=== PATIENT | female | born 1985 | race Caucasian/White ===

== ENCOUNTER → 2017-09-01 | Outpatient (CLI) | payer OTHER ==
[~2017-09-01] MED LIST: Ceftriaxone2 G1 IV; HYDCHL50; IBUP400 PO; IBUP600 PO; MECL25 PO; Percocet 5-3251 EACH PO; TRAM50 PO; Zofran8 MG PO; [UNRECOGNIZED DRUG - REMARK]
== END ==
LOC: LAB 15:17
DX: Z34.00 Encounter for supervision of normal first pregnancy, unspecified trimester (principal)
CPT/HCPCS: 87081; 87653

== ENCOUNTER → 2017-09-06 | Outpatient (CLI) | payer OTHER ==
[2017-09-06 13:56] LABS: Protein, Urine Quantitative 42.7 mg/dL (0.0-11.9)
== END | disposition home or self-care (01) ==
LOC: LAB 13:03
PROVIDERS: Obstetrics & Gynecology
DX: R03.0 Elevated blood-pressure reading, without diagnosis of hypertension (principal)
CPT/HCPCS: 81050; 84156

== ENCOUNTER 2018-04-30 14:39 | Emergency (ER) | payer OTHER ==
[~2018-04-30] VITALS: Ht 154.9 cm; Wt 79.4 kg
[~2018-04-30 14:39] MED LIST changes: -Ceftriaxone2 G1 IV; -IBUP400 PO; -Percocet 5-3251 EACH PO; -TRAM50 PO; -Zofran8 MG PO
[2018-04-30 15:30] LABS: Calcium, Ionized (POC) 1.09 mmol/L (1.10-1.46); Chloride (POC) 101 mmol/L (98-108); Creatinine (POC) 0.6 mg/dL (0.6-1.0); Glucose (ISTAT POC) 91 mg/dL (70-99); Hemoglobin (POC) 15.3 g/dL (12.0-16.0); Potassium (POC) 3.9 mmol/L (3.5-5.5); Sodium (POC) 139 mmol/L (135-148); Total CO2 (POC) 26 mmol/L (21-32)
[2018-04-30 15:37] LABS: BASOPHILS ABSOLUTE AUTO 0.05 K/mm3 (0.00-0.23); BASOPHILS PERCENT AUTO 0 % (0-2); EOSINOPHILS ABSOLUTE AUTO 0.15 K/mm3 (0.00-0.68); EOSINOPHILS PERCENT AUTO 1 % (0-6); Hematocrit 43.9 % (33.0-51.0); Hemoglobin 14.1 g/dL (11.5-16.0); IMMATURE GRAN ABSOLUTE AUTO 0.08 K/mm3 (0.00-0.10); IMMATURE GRAN PERCENT AUTO 1 % (0-1); LYMPHOCYTES ABSOLUTE AUTO 2.99 K/mm3 (0.84-5.20); LYMPHOCYTES PERCENT AUTO 19 % (21-46); MONOCYTES ABSOLUTE AUTO 0.71 K/mm3 (0.16-1.47); MONOCYTES PERCENT AUTO 5 % (4-13); Mean Corpuscular HGB 29.9 pg (26.0-34.0); Mean Corpuscular HGB Conc 32.1 g/dL (31.5-36.5); Mean Corpuscular Volume 93 fL (80-100); Mean Platelet Volume 9.8 fL (9.1-12.4); NEUTROPHILS ABSOLUTE AUTO 11.73 K/mm3 (1.96-9.15); NEUTROPHILS PERCENT AUTO 75 % (41-73); Platelet Count 289 K/mm3 (150-400); RDW Coefficient Variation 12.9 % (11.7-14.2); RDW Standard Deviation 44.2 fL (35.1-46.3); Red Blood Cell Count 4.72 M/mm3 (3.80-5.20); White Blood Cell Count 15.71 K/mm3 (4.00-11.30)
[2018-04-30] MEDS ORDERED: IBUP400 PO (17:20)
[2018-04-30] MEDS ORDERED: Percocet 5-3251 EACH PO (17:20)
[2018-04-30] MEDS ORDERED: Zofran8 MG PO (17:20)
== END 2018-04-30 18:08 | disposition home or self-care (01) ==
LOC: ER 14:39
PROVIDERS: Emergency Medicine
DX: H92.02 Otalgia, left ear (principal); Z88.8 Allergy status to other drugs, medicaments and biological substances
CPT/HCPCS: 36415; 70480; 80047; 85014; 85025; J1170; J1885; J2405; J7120

== ENCOUNTER 2018-07-26 00:11 | Day surgery (SDC) | payer OTHER ==
[~2018-07-26 00:11] MED LIST changes: +Ceftriaxone2 G1 IV; +IBUP400 PO; +Percocet 5-3251 EACH PO; +TRAM50 PO; +Zofran8 MG PO
== END 2018-07-26 17:01 | disposition home or self-care (01) ==
LOC: ATC 00:11
DX: G00.0 Hemophilus meningitis (principal)
CPT/HCPCS: 96365; J0696

== ENCOUNTER 2018-07-27 00:07 | Day surgery (SDC) | payer OTHER | END 2018-07-27 17:10 | disposition home or self-care (01) | LOC: ATC 00:07 | DX: G00.0 Hemophilus meningitis (principal) | CPT/HCPCS: 96365; J0696 ==

== ENCOUNTER 2018-07-28 01:24 | Day surgery (SDC) | payer OTHER | END 2018-07-28 07:57 | disposition home or self-care (01) | LOC: ATC 01:24 | DX: G00.0 Hemophilus meningitis (principal) | CPT/HCPCS: J0696 ==

== ENCOUNTER 2018-07-28 17:09 | Emergency (ER) | payer OTHER ==
[~2018-07-28] VITALS: Ht 154.9 cm; Wt 83.9 kg
== END 2018-07-28 18:58 | disposition home or self-care (01) ==
LOC: ER 17:09
DX: Z76.0 Encounter for issue of repeat prescription (principal); Z88.8 Allergy status to other drugs, medicaments and biological substances; Z79.899 Other long term (current) drug therapy
CPT/HCPCS: 96365; 99281-25; J0696

== ENCOUNTER 2018-07-29 07:54 | Day surgery (SDC) | payer OTHER | END 2018-07-29 17:00 | disposition home or self-care (01) | LOC: ATC 07:54 | DX: G93.40 Encephalopathy, unspecified (principal); N18.3 Chronic kidney disease, stage 3 (moderate); G50.0 Trigeminal neuralgia | CPT/HCPCS: 96365; J0696 ==

== ENCOUNTER 2018-07-30 07:59 | Day surgery (SDC) | payer OTHER | END 2018-07-30 16:45 | disposition home or self-care (01) | LOC: ATC 07:59 | DX: G00.0 Hemophilus meningitis (principal) | CPT/HCPCS: 96365; J0696 ==

== ENCOUNTER 2018-07-31 00:03 | Day surgery (SDC) | payer OTHER ==
[2018-07-31 08:17] LABS: BASOPHILS ABSOLUTE AUTO 0.02 K/mm3 (0.00-0.23); BASOPHILS PERCENT AUTO 0 % (0-2); EOSINOPHILS ABSOLUTE AUTO 0.16 K/mm3 (0.00-0.68); EOSINOPHILS PERCENT AUTO 2 % (0-6); Hematocrit 41.1 % (33.0-51.0); Hemoglobin 13.1 g/dL (11.5-16.0); IMMATURE GRAN ABSOLUTE AUTO 0.06 K/mm3 (0.00-0.10); IMMATURE GRAN PERCENT AUTO 1 % (0-1); LYMPHOCYTES PERCENT AUTO 26 % (21-46); MONOCYTES ABSOLUTE AUTO 0.48 K/mm3 (0.16-1.47); MONOCYTES PERCENT AUTO 5 % (4-13); Mean Corpuscular HGB 29.4 pg (26.0-34.0); Mean Corpuscular HGB Conc 31.9 g/dL (31.5-36.5); Mean Corpuscular Volume 92 fL (80-100); Mean Platelet Volume 9.3 fL (9.1-12.4); NEUTROPHILS ABSOLUTE AUTO 6.64 K/mm3 (1.96-9.15); NEUTROPHILS PERCENT AUTO 67 % (41-73); Platelet Count 325 K/mm3 (150-400); RDW Coefficient Variation 14.1 % (11.7-14.2); RDW Standard Deviation 47.8 fL (35.1-46.3); Red Blood Cell Count 4.46 M/mm3 (3.80-5.20); White Blood Cell Count 9.96 K/mm3 (4.00-11.30)
[2018-07-31 08:37] LABS: Alanine Aminotransfer (ALT/SGP 24 U/L (12-78); Albumin, Blood 3.2 g/dL (3.4-5.0); Albumin/Globulin Ratio 0.7 (0.8-1.8); Alk Phos 84 U/L (50-136); Anion Gap 7 mmol/L (6-16); Aspartate Aminotrans (AST/SGOT 9 U/L (12-37); Bilirubin, Total 0.3 mg/dL (0.1-1.0); Blood Urea Nitrogen 16 mg/dL (8-24); Bun/Creatinine Ratio 24.9 (12.0-20.0); CO2, Blood 25 mmol/L (21-32); Calcium, Blood 8.8 mg/dL (8.5-10.1); Chloride, Blood 108 mmol/L (98-108); Creatinine, Blood 0.64 mg/dL (0.40-1.00); Globulin, Blood 4.6 g/dL (2.2-4.0); Glomerular Filtration Rate >60 (60-); Glucose, Blood 90 mg/dL (70-99); Potassium, Blood 4.1 mmol/L (3.5-5.5); Sodium, Blood 140 mmol/L (136-145); Total Protein, Blood 7.8 g/dL (6.4-8.2)
== END 2018-07-31 17:11 | disposition home or self-care (01) ==
LOC: ATC 00:03
PROVIDERS: Internal Medicine Infectious Disease
DX: G00.0 Hemophilus meningitis (principal)
CPT/HCPCS: 80053; 85025; 96365; J0696

== ENCOUNTER 2018-08-01 00:05 | Day surgery (SDC) | payer OTHER ==
--- NOTE | 2018-08-01 17:50 | NUR ---
LINDSEY CALDERON RN HER AND PLACED POWER GLIDE IV IN L UPPER ARM.
== END 2018-08-01 17:45 | disposition home or self-care (01) ==
LOC: ATC 00:05
DX: G00.0 Hemophilus meningitis (principal)
CPT/HCPCS: 96365; C1751; C1894; J0696

== ENCOUNTER 2018-08-02 00:15 | Day surgery (SDC) | payer OTHER | END 2018-08-02 16:44 | disposition home or self-care (01) | LOC: ATC 00:15 | DX: G00.0 Hemophilus meningitis (principal) | CPT/HCPCS: 96365; J0696 ==

== ENCOUNTER 2018-08-04 00:17 | Day surgery (SDC) | payer OTHER | END 2018-08-04 16:53 | disposition home or self-care (01) | LOC: ATC 00:17 | DX: G00.0 Hemophilus meningitis (principal) | CPT/HCPCS: 96365; J0696 ==

== ENCOUNTER 2018-08-09 00:06 | Day surgery (SDC) | payer OTHER ==
--- NOTE | 2018-08-09 08:36 | NUR ---
PT DISCHARGED AFTER EXT DWELL DSG CHANGE AT 0817.
== END 2018-08-09 08:17 | disposition home or self-care (01) ==
LOC: ATC 00:06
DX: G00.0 Hemophilus meningitis (principal)
CPT/HCPCS: 96365; 96366; J0696; 99211

== ENCOUNTER 2018-08-17 00:08 | Day surgery (SDC) | payer OTHER | END 2018-08-17 13:58 | disposition home or self-care (01) | LOC: ATC 00:08 | DX: G00.0 Hemophilus meningitis (principal) | CPT/HCPCS: 99212; C1751 ==

== ENCOUNTER 2018-09-16 13:04 | Emergency (ER) | payer OTHER ==
[~2018-09-16] VITALS: Ht 154.9 cm; Wt 81.7 kg
[2018-09-16 14:38] LABS: Source, Urine Clean Catch
[2018-09-16 14:40] LABS: Appearance, Urine Hazy (Clear); Bilirubin, Urine Neg (Neg); Blood, Urine 2+ (Neg); Color, Urine Yellow (P-Yellow); Glucose Qualitative, Urine Neg (Neg); Ketones, Urine Neg (Neg); Leukocyte Esterase, Urine 1+ (Neg); Nitrite, Urine Neg (Neg); Protein, Urine 2+ (Neg); Urobilinogen, Urine NORM (Normal)
[2018-09-16 14:44] LABS: BASOPHILS ABSOLUTE AUTO 0.03 K/mm3 (0.00-0.23); BASOPHILS PERCENT AUTO 0 % (0-2); EOSINOPHILS ABSOLUTE AUTO 0.04 K/mm3 (0.00-0.68); EOSINOPHILS PERCENT AUTO 0 % (0-6); Hemoglobin 13.1 g/dL (11.5-16.0); IMMATURE GRAN ABSOLUTE AUTO 0.08 K/mm3 (0.00-0.10); IMMATURE GRAN PERCENT AUTO 0 % (0-1); LYMPHOCYTES PERCENT AUTO 7 % (21-46); MONOCYTES PERCENT AUTO 5 % (4-13); Mean Corpuscular HGB 29.4 pg (26.0-34.0); Mean Corpuscular Volume 92 fL (80-100); Mean Platelet Volume 9.9 fL (9.1-12.4); NEUTROPHILS ABSOLUTE AUTO 18.25 K/mm3 (1.96-9.15); NEUTROPHILS PERCENT AUTO 87 % (41-73); Platelet Count 237 K/mm3 (150-400); RDW Coefficient Variation 13.6 % (11.7-14.2); RDW Standard Deviation 46.1 fL (35.1-46.3); Red Blood Cell Count 4.46 M/mm3 (3.80-5.20)
[2018-09-16 15:09] LABS: Alanine Aminotransfer (ALT/SGP 17 U/L (12-78); Albumin, Blood 3.4 g/dL (3.4-5.0); Albumin/Globulin Ratio 0.8 (0.8-1.8); Alk Phos 90 U/L (50-136); Anion Gap 6 mmol/L (6-16); Aspartate Aminotrans (AST/SGOT 13 U/L (12-37); Bilirubin, Total 0.9 mg/dL (0.1-1.0); Blood Urea Nitrogen 9 mg/dL (8-24); Bun/Creatinine Ratio 13.4 (12.0-20.0); CO2, Blood 25 mmol/L (21-32); Calcium, Blood 9.2 mg/dL (8.5-10.1); Chloride, Blood 104 mmol/L (98-108); Creatinine, Blood 0.67 mg/dL (0.40-1.00); Globulin, Blood 4.2 g/dL (2.2-4.0); Glomerular Filtration Rate >60 (60-); Glucose, Blood 91 mg/dL (70-99); Potassium, Blood 4.1 mmol/L (3.5-5.5); Sodium, Blood 135 mmol/L (136-145); Total Protein, Blood 7.6 g/dL (6.4-8.2)
[2018-09-16] MEDS ORDERED: OXYC5 (15:09)
[2018-09-16 15:14] LABS: Bacteria Many /hpf; Squamous Epithelial Cells Many /hpf (Few)
[2018-09-16 17:10] LABS: Glucose, CSF 58 mg/dL (40-70)
[2018-09-16 17:14] LABS: Color, CSF No Color (No Color); RBC Count, CSF 16 /mm3 (0-0); WBC Count, CSF 1 /mm3 (0-5)
[2018-09-16 17:15] LABS: Appearance, CSF Clear (Clear)
== END 2018-09-16 18:43 | disposition home or self-care (01) ==
LOC: ER 13:04
PROVIDERS: Emergency Medicine; Physician Assistant
DX: R51 Headache (principal); Z88.8 Allergy status to other drugs, medicaments and biological substances; Z79.891 Long term (current) use of opiate analgesic
CPT/HCPCS: 36415; 62270; 80053; 81001; 82945; 84157; 85025; 87081; 87086; 87430; 89051; 93005; 93010; J1170; J2405; J7030; J7120

== ENCOUNTER → 2020-01-09 | Outpatient (CLI) | payer BC, OTHER ==
[~2020-01-09] MED LIST changes: +OXYC5
[2020-01-09 16:28] LABS: Protein, Urine Quantitative 8.8 mg/dL (0.0-11.9)
== END | disposition home or self-care (01) ==
LOC: LAB 07:15 → LAB SHORT 07:15
PROVIDERS: Obstetrics & Gynecology
DX: Z01.419 Encounter for gynecological examination (general) (routine) without abnormal findings (principal); Z87.59 Personal history of other complications of pregnancy, childbirth and the puerperium
CPT/HCPCS: 81050; 84156

== ENCOUNTER → 2020-04-09 | Outpatient (CLI) | payer BC ==
[2020-04-09 15:07] LABS: BASOPHILS ABSOLUTE AUTO 0.03 K/mm3 (0.00-0.23); BASOPHILS PERCENT AUTO 0 % (0-2); EOSINOPHILS ABSOLUTE AUTO 0.07 K/mm3 (0.00-0.68); EOSINOPHILS PERCENT AUTO 1 % (0-6); Hematocrit 37.9 % (33.0-51.0); IMMATURE GRAN PERCENT AUTO 1 % (0-1); LYMPHOCYTES ABSOLUTE AUTO 1.57 K/mm3 (0.84-5.20); LYMPHOCYTES PERCENT AUTO 12 % (21-46); MONOCYTES PERCENT AUTO 3 % (4-13); Mean Corpuscular HGB 31.4 pg (26.0-34.0); Mean Corpuscular HGB Conc 31.7 g/dL (31.5-36.5); Mean Corpuscular Volume 99 fL (80-100); Mean Platelet Volume 10.9 fL (9.1-12.4); NEUTROPHILS ABSOLUTE AUTO 11.52 K/mm3 (1.96-9.15); NEUTROPHILS PERCENT AUTO 84 % (41-73); Platelet Count 197 K/mm3 (150-400); RDW Coefficient Variation 14.2 % (11.7-14.2); RDW Standard Deviation 51.5 fL (35.1-46.3); Red Blood Cell Count 3.82 M/mm3 (3.80-5.20); White Blood Cell Count 13.69 K/mm3 (4.00-11.30)
== END | disposition home or self-care (01) ==
LOC: LAB 13:18 → LAB SHORT 13:18
PROVIDERS: Obstetrics & Gynecology
DX: Z34.82 Encounter for supervision of other normal pregnancy, second trimester (principal)
CPT/HCPCS: 85025

== ENCOUNTER → 2020-06-10 | Outpatient (CLI) | payer BC, OTHER | END | disposition home or self-care (01) | LOC: PLD 10:45 → LAB SHORT 10:45 | DX: O09.213 Supervision of pregnancy with history of pre-term labor, third trimester (principal) | CPT/HCPCS: 87081; 87150 ==

== ENCOUNTER → 2023-06-28 | Outpatient (CLI) | payer BC ==
[2023-07-08 09:30] LABS: HPV GENOTYPE 16 Not Detected; HPV GENOTYPE 18 Not Detected; HPV HIGH RISK Not Detected; HPV SOURCE Cervical
== END | disposition home or self-care (01) ==
LOC: LAB SHORT 17:01 → LAB 17:01
PROVIDERS: Obstetrics & Gynecology
DX: Z01.419 Encounter for gynecological examination (general) (routine) without abnormal findings (principal)
CPT/HCPCS: 87624; G0123

== ENCOUNTER → 2023-09-02 | Outpatient (CLI) | payer BC ==
[2023-09-02 19:43] LABS: Bacteria Few /hpf; Red Blood Cells, Urine 0-2 /hpf (0-2); Squamous Epithelial Cells Few /hpf (Few); White Blood Cells, Urine 0-2 /hpf (0-5)
== END ==
LOC: LAB SHORT 14:37 → LAB 14:37
PROVIDERS: Obstetrics & Gynecology
DX: O09.90 Supervision of high risk pregnancy, unspecified, unspecified trimester (principal); Z3A.00 Weeks of gestation of pregnancy not specified
CPT/HCPCS: 81015; 87086

== ENCOUNTER → 2023-09-22 | Outpatient (CLI) | payer BC ==
[2023-09-22 10:41] LABS: BASOPHILS ABSOLUTE AUTO 0.01 K/mm3 (0.00-0.23); BASOPHILS PERCENT AUTO 0 % (0-2); EOSINOPHILS ABSOLUTE AUTO 0.01 K/mm3 (0.00-0.68); EOSINOPHILS PERCENT AUTO 0 % (0-6); Hematocrit 40.9 % (33.0-51.0); Hemoglobin 13.7 g/dL (11.5-16.0); IMMATURE GRAN ABSOLUTE AUTO 0.02 K/mm3 (0.00-0.10); IMMATURE GRAN PERCENT AUTO 0 % (0-1); LYMPHOCYTES PERCENT AUTO 6 % (21-46); MONOCYTES ABSOLUTE AUTO 0.49 K/mm3 (0.16-1.47); MONOCYTES PERCENT AUTO 7 % (4-13); Mean Corpuscular HGB 30.3 pg (26.0-34.0); Mean Corpuscular HGB Conc 33.5 g/dL (31.5-36.5); Mean Corpuscular Volume 91 fL (80-100); Mean Platelet Volume 10.3 fL (9.1-12.4); NEUTROPHILS ABSOLUTE AUTO 5.81 K/mm3 (1.96-9.15); NEUTROPHILS PERCENT AUTO 86 % (41-73); Platelet Count 174 K/mm3 (150-400); RDW Coefficient Variation 13.5 % (11.7-14.2); RDW Standard Deviation 44.5 fL (35.1-46.3); Red Blood Cell Count 4.52 M/mm3 (3.80-5.20); White Blood Cell Count 6.74 K/mm3 (4.00-11.30)
[2023-09-23 15:13] LABS: HEPATITIS B SURFACE ANTIGEN Negative (Negative)
[2023-09-23 19:09] LABS: HEPATITIS C AB CIA INTERP Negative (Negative); HEPATITIS C ANTIBODY CIA INDEX 0.06 IV
[2023-09-24 09:08] LABS: HIV 1,2 COMBO ANTIGEN/ANTIBODY Negative (Negative)
== END ==
LOC: LAB SHORT 10:26
PROVIDERS: Obstetrics & Gynecology
DX: O09.90 Supervision of high risk pregnancy, unspecified, unspecified trimester (principal); Z3A.00 Weeks of gestation of pregnancy not specified
CPT/HCPCS: 84443; 85025; 86592; 86762; 86850; 86900; 86901